=== PATIENT | male | born 1980 | race African-American/Black ===

== ENCOUNTER 2022-06-16 04:29 | Emergency (ER) | payer MEDICAID ==
[~2022-06-16] VITALS: Ht 180.3 cm; Wt 83.0 kg
[2022-06-16 04:31] VITALS: BP 137/77
== END 2022-06-16 08:15 | disposition left against medical advice (07) ==
LOC: ER 05:07
DX: Z53.21 Procedure and treatment not carried out due to patient leaving prior to being seen by health care provider (principal)
CPT/HCPCS: 99281

== ENCOUNTER 2024-07-09 13:53 | Emergency (ER) | payer SELFPAY ==
[~2024-07-09] VITALS: Ht 177.8 cm; Wt 68.0 kg
[2024-07-09 14:01] VITALS: TEMP 36.9; O2SAT 100
[2024-07-09 14:50] LABS: BASOPHILS % 0.5 % (0.0-2.0); DIFFERENTIAL COMMENT 0; EOSINOPHILS % 0.2 % (0.0-5.0); HEMATOCRIT. 44.6 % (42.0-52.0); HEMOGLOBIN. 13.8 g/dL (14.0-18.0); LYMPHOCYTES % 11.3 % (20.0-50.0); MEAN CORPUSCULAR HEMOGLOBIN 29.8 pg (28.0-32.0); MEAN CORPUSCULAR HGB CONC 30.8 g/dL (31.0-37.0); MEAN CORPUSCULAR VOLUME 96.6 fL (80.0-94.0); MEAN PLATELET VOLUME 9.6 fl (7.4-10.4); MONOCYTES % 3.2 % (2.0-8.0); NEUTROPHILS % 84.8 % (40.0-76.0); PLATELET 95 x1000/uL (130-400); RED BLOOD CELL COUNT 4.62 mill/uL (4.7-6.1); RED CELL DISTRIBUTION WIDTH 14.6 % (11.6-14.6)
[2024-07-09 15:02] LABS: CHLORIDE 104 mEq/L (98-107); POTASSIUM 3.6 mEq/L (3.5-5.1); SODIUM 141 mEq/L (136-145)
[2024-07-09 15:03] LABS: CARBON DIOXIDE 22 mEq/L (21-32)
[2024-07-09 15:04] LABS: CALCIUM 10.2 mg/dL (8.7-10.4)
[2024-07-09 15:08] LABS: CREATININE 1.2 mg/dL (0.6-1.3)
[2024-07-09 15:09] LABS: GLUCOSE 131 mg/dL (70-105); UREA NITROGEN BLOOD 13 mg/dL (9-23)
[2024-07-09 15:10] LABS: ALANINE AMINOTRANSFERASE 22 IU/L (10-49); ALBUMIN 4.2 g/dL (3.2-4.8); ASPARTATE AMINOTRANSFERASE 25 IU/L (<34)
[2024-07-09 15:11] LABS: BILIRUBIN DIRECT < 0.1 mg/dL (<=3.0); BILIRUBIN TOTAL 0.4 mg/dL (0.1-1.0)
[2024-07-09] MEDS: MAGNESIUM/ALUMINUM HYDROXIDE/SIMETHICONE 30ML UDC PO ONE (17:48)
[2024-07-09] MEDS: ONDANSETRON 4MG ODT PO ONE (17:48)
[2024-07-09] MEDS ORDERED: KETOROLAC 30MG/ML VIAL IV ONE (18:45)
[2024-07-09 19:40] LABS: CLARITY URINE CLEAR (CLEAR); COLOR URINE YELLOW (YELLOW); GLUCOSE URINE NEGATIVE (NEGATIVE); KETONES URINE TRACE (NEGATIVE); LEUKOCYTE ESTERASE URINE NEGATIVE (NEGATIVE); NITRITE URINE NEGATIVE (NEGATIVE); OCCULT BLOOD URINE 2+ (NEGATIVE); PH URINE 7.5 (4.5-8.0); PROTEIN URINE 1+ (NEGATIVE); SPECIFIC GRAVITY URINE 1.024 (1.005-1.030); UROBILINOGEN URINE 0.2 E.U./dL (0.2-1.0)
[2024-07-09 19:51] LABS: BACTERIA URINE TRACE; SQUAMOUS EPITHELIAL CELL URINE 1+ /lpf (RARE/1+); WBC URINE 0-2 /hpf (0-2)
[2024-07-09] MEDS ORDERED: ONDA4TAB50 MT (20:24)
[2024-07-09] MEDS ORDERED: NAPR-679 MT (20:24)
[2024-07-09] MEDS ORDERED: TAMS-11 MT (20:24)
[2024-07-09] MEDS ORDERED: ACET-2708 MT (20:24)
[2024-07-09] MEDS: FAMOTIDINE 20MG TABLET PO SCH (20:43)
[2024-07-09] MEDS: KETOROLAC 30MG/ML VIAL IV NR (20:43)
[2024-07-09] MEDS: SODIUM CHLORIDE 0.9% 1,000 ML IV ONE (20:43)
[2024-07-09 21:53] VITALS: BP 140/70; PULSE 88; RESP 20; O2SAT 100
== END 2024-07-09 21:56 | disposition home or self-care (01) ==
LOC: ER 13:53
DX: N20.9 Urinary calculus, unspecified (principal); F12.90 Cannabis use, unspecified, uncomplicated; Z79.899 Other long term (current) drug therapy; Z79.1 Long term (current) use of non-steroidal anti-inflammatories (NSAID)
CPT/HCPCS: 99285; 74176; 96374; 96361; 80076; 80048; 81003; 83690; 85025; 36415; J1885; Q0162; J7030